=== PATIENT | male | born 1975 | race Hispanic/Latino ===

== ENCOUNTER 2023-07-27 04:10 | Emergency (ER) | payer SELFPAY ==
[2023-07-27 05:01] VITALS: BP 138/93
[2023-07-27 05:43] VITALS: BP 143/87
[2023-07-27 06:00] VITALS: BP 144/95
[2023-07-27 06:06] LABS: BASO% 0.5 % (0-3); EOS% 0.2 % (0-8); HEMATOCRIT 44.8 % (39.0-50.0); HEMOGLOBIN 15.1 g/dl (14.0-18.0); IMMATURE GRANULOCYTES 0.3 % (0.0-5.0); MEAN CELL VOLUME 76.1 fL CALC (80.0-100.0); MEAN CORPUSCULAR HGB 25.6 pG CALC (26.0-32.0); MEAN CORPUSCULAR HGB CONC 33.7 g/dL CAL (32.0-36.0); MONO% 7.4 % (2-13); NEUT# 3.88 thou/uL (1.82-7.42); NEUT% 65.6 % (42-76); RED BLOOD COUNT 5.89 mill/uL (4.70-6.10); RED CELL DISTRI WIDTH 13.6 % (11.5-15.5)
[2023-07-27 06:22] LABS: ALKALINE PHOSPHATASE 89 u/l (38-126); ANION GAP 22 (6-22 (CALC)); BUN 13 mg/dL (9-20); BUN/CREATININE RATIO 18 (12-20 (CALC)); CARBON DIOXIDE 18 mmol/l (22-30); CHLORIDE 107 mmol/l (95-108); CREATININE 0.7 mg/dL (0.7-1.3); ETHYL ALCOHOL 276 mg/dl (0-30); GFR FOR AFR.AMER. > 60 ML/MIN (>=60 (CALC)); GFR OTHER RACES > 60 ML/MIN (>=60 (CALC)); POTASSIUM 4.1 mmol/l (3.5-5.1); SGOT/AST 89 u/l (17-59); SODIUM 142 mmol/l (137-146)
[2023-07-27 10:57] VITALS: BP 144/95
== END 2023-07-27 11:13 | disposition home or self-care (01) | DRG 897 ==
LOC: ED 04:10
PROVIDERS: Family Medicine
DX: F10.129 Alcohol abuse with intoxication, unspecified (principal); Y90.8 Blood alcohol level of 240 mg/100 ml or more

== ENCOUNTER 2024-07-23 16:03 | Observation (INO) | payer SELFPAY ==
[~2024-07-23] VITALS: Ht 167.6 cm; Wt 75.8 kg
[~2024-07-23 16:03] MED LIST: COZAAR50 MG PO; PROTONIX40 M2 PO
--- NOTE | 2024-07-23 16:10 | NUR ---
PT BROUGHT BACK TO ER ROOM 5 VIA WHEELCHAIR
[2024-07-23 16:31] VITALS: BP 140/96
[2024-07-23] MEDS ORDERED: IPRATROPIUM-Albuterol 0.5MG-2.5MG/3 ML NEB ONE ×2 (16:35)
[2024-07-23] MEDS ORDERED: AZITHROMYCIN 500 MG in SODIUM CHLORIDE 0.9% 500 ML IV ONE (16:40)
[2024-07-23] MEDS ORDERED: cefTRIAXone SODIUM 2 GM in SODIUM CHLORIDE 0.9% 100 ML IV ONE (16:40)
[2024-07-23] MEDS ORDERED: methylPREDNISolone SODIUM SUCC 125 MG/2 ML SDV IV ONE (16:40)
[2024-07-23] MEDS ORDERED: SODIUM CHLORIDE 0.9% 1,000 ML IV ONE (16:45)
[2024-07-23 16:56] LABS: BASO% 0.2 % (0-3); HEMATOCRIT 44.6 % (39.0-50.0); HEMOGLOBIN 15.2 g/dl (14.0-18.0); IMMATURE GRANULOCYTES 0.9 % (0.0-5.0); LYMPH% 12.4 % (15-41); MEAN CELL VOLUME 74.1 fL CALC (80.0-100.0); MEAN CORPUSCULAR HGB 25.2 pG CALC (26.0-32.0); MEAN CORPUSCULAR HGB CONC 34.1 g/dL CAL (32.0-36.0); MONO% 7.9 % (2-13); NEUT# 11.02 thou/uL (1.82-7.42); NEUT% 78.6 % (42-76); RED BLOOD COUNT 6.02 mill/uL (4.70-6.10); RED CELL DISTRI WIDTH 12.9 % (11.5-15.5)
[2024-07-23 17:07] LABS: ALBUMIN 4.3 g/dL (3.2-5.0); ALKALINE PHOSPHATASE 87 u/l (38-126); ANION GAP 20 (6-22 (CALC)); BILIRUBIN, TOTAL 1.6 mg/dL (0.2-1.3); BUN 7 mg/dL (9-20); BUN/CREATININE RATIO 9 (12-20 (CALC)); CARBON DIOXIDE 15 mmol/l (22-30); CHLORIDE 103 mmol/l (95-108); CREATININE 0.8 mg/dL (0.7-1.3); ESTIMATED GFR 108 ML/MIN (>=90 (CALC)); POTASSIUM 4.1 mmol/l (3.5-5.1); SGOT/AST 55 u/l (17-59); SODIUM 133 mmol/l (137-146); TOTAL PROTEIN 7.2 g/dL (6.3-8.2)
[2024-07-23 17:08] VITALS: BP 164/84
[2024-07-23] MEDS ORDERED: FUROSEMIDE 40 MG/4 ML SDV IV ONE ×2 (17:25)
[2024-07-23 17:30] VITALS: BP 137/70
[2024-07-23 18:00] VITALS: BP 153/89
--- NOTE | 2024-07-23 18:10 | NUR ---
PT MEDICATED PER EMAR, PT IN BED, PT STATED HE IS FEELING A LITTLE BETTER THAN WHEN HE FIRST GOT HERE, CALL LIGHT WITHIN REACH, EMISIS BAG WITHIN REACH, PT DENIES ANY NEEDS AT THIS TIME, PT UPDATED ON THE PLAN OF CARE
[2024-07-23 18:30] VITALS: BP 161/136
[2024-07-23 18:44] LABS: URINE BILIRUBIN - DIPSTICK Negative (NEGATIVE); URINE BLOOD DIPSTICK Negative (NEGATIVE); URINE GLUCOSE - DIPSTICK 500 mg/dL (NEGATIVE); URINE KETONE Trace mg/dL (NEGATIVE); URINE LEUK ESTERASE Negative (NEGATIVE); URINE NITRITE - DIPSTICK Negative (Negative); URINE PROTEIN - DIPSTICK Negative (NEG-TRACE); URINE SPECIFIC GRAVITY <=1.005; URINE UROBILINOGEN - DIPSTICK 0.2 E.U./dL (0.2)
[2024-07-23 18:45] LABS: URINE COLOR Straw
[2024-07-23] MEDS ORDERED: OMEPRAZOLE DR40 MG PO (19:00)
--- NOTE | 2024-07-23 19:00 | NUR ---
RECEIVED REPORT FROM CARMELA HERNANDEZ AT THIS TIME, PT NOTED TO BE STANDING AT BEDSIDE, PT ASSISTED BACK TO BED, UPDATED ON CONTINUOUS PLAN OF CARE, PT ABX RUNNING, CONNECTED TO CONTINUOUS MONTITORING, NAD NOTED, PT ST ON ONITOR AT 120, AWAITING ALL FURTHER RESULTS, MED REC CMP BY RAILWAY SWITCHMAN.
--- NOTE | 2024-07-23 19:20 | NUR ---
PT CONTINUES TO EXIT STRETCHER AT THIS TIME, PT EDUCATED ON SAFETY PLAN, PT PLACED IN CHAIR WITH CALL LIGHT WITHIN REACH, ABX RUNNING, PT AWAITING MD FOR FURTHER PLAN OF CARE.
--- NOTE | 2024-07-23 19:29 | NUR ---
AT BEDSIDE FOR DISCUSSION OF RESULTS AND PLAN OF CARE.
[2024-07-23] MEDS ORDERED: CEFEPIME HCL 1 GM/VIAL IV ONE (19:40)
[2024-07-23] MEDS ORDERED: LACTATED RINGER'S 1,000 ML IV ONE (19:40)
[2024-07-23] MEDS ORDERED: VANCOMYCIN HCL 1 GM in SODIUM CHLORIDE 0.9% 500 ML IV ONE (19:40)
[2024-07-23] MEDS ORDERED: SODIUM CHLORIDE 0.9% 500 ML BAG IV ONE (20:50)
[2024-07-23] MEDS ORDERED: SODIUM CHLORIDE 0.9% 50 ML IV ONE (20:52)
[2024-07-23] MEDS ORDERED: ACETAMINOPHEN 325 MG/TAB PO PRN (21:05)
[2024-07-23] MEDS ORDERED: Polyethylene Glycol 3350 17 GM/PKT PO PRN (21:05)
[2024-07-23] MEDS ORDERED: LACTATED RINGER'S 1,000 ML IV PRN (21:05)
[2024-07-23] MEDS ORDERED: PANTOPRAZOLE SODIUM Sesquihydr 40 MG/TAB PO SCH (21:09)
[2024-07-23] MEDS ORDERED: VANCOMYCIN HCL 1 GM in SODIUM CHLORIDE 0.9% 250 ML IV ONE (21:10)
[2024-07-23] MEDS ORDERED: LORazepam 2 MG/ML IV PRN (21:10)
--- NOTE | 2024-07-23 21:34 | NUR ---
PT REPORT GIVEN TO EVELIO BALES ON [facility] FLOOR
--- NOTE | 2024-07-23 21:36 | NUR ---
REPORT CALLED TO NII FRASER ON [facility].
--- NOTE | 2024-07-23 21:45 | NUR ---
PT TRANSPORTED TO [facility] AT THIS TIME WITH ADDITIONAL STAFF.
--- NOTE | 2024-07-23 22:23 | NUR ---
PATIENT CAME IN FROM ER AT 2150 VIA WHEEL CHAIR. PATIENT IS ESTONIAN SPEAKING. BED SIDE ASSESSMENT COMPLETE. A&OX3. PUPILS 3MM REACTIVE TO LIGHT. LUNG SOUNDS CLEAR. UNLABORED RESP. NO VISUAL SIGNS OF DISTRESS. NORMAL S1&S2. BOWEL SOUNDS PRESENT IN ALL 4 QUADRENTS. PERIPHERAL PULSES EQUAL AND STRONG. NO COMPLAINTS OF PAIN AT THIS TIME. BED AT LOWEST POSITION. CALL LIGHT WITH IN REACH.
[2024-07-23 23:37] VITALS: BP 171/99
--- NOTE | 2024-07-24 00:10 | NUR ---
PATIENT IN ROOM SITTING IN RECLINER AWAKE. PATIENT CAN MAKE NEEDS KNOWN. NONE NEEDED AT THIS TIME. BED AT LOWEST POSITION. CALL LIGHT WITH IN REACH.
[2024-07-24 04:31] LABS: BASO% 0.1 % (0-3); HEMATOCRIT 41.2 % (39.0-50.0); HEMOGLOBIN 14.1 g/dl (14.0-18.0); IMMATURE GRANULOCYTES 0.5 % (0.0-5.0); LYMPH% 4.6 % (15-41); MEAN CELL VOLUME 75.5 fL CALC (80.0-100.0); MEAN CORPUSCULAR HGB 25.8 pG CALC (26.0-32.0); MEAN CORPUSCULAR HGB CONC 34.2 g/dL CAL (32.0-36.0); MONO% 1.6 % (2-13); NEUT# 11.31 thou/uL (1.82-7.42); NEUT% 93.2 % (42-76); RED BLOOD COUNT 5.46 mill/uL (4.70-6.10)
[2024-07-24 04:33] VITALS: BP 157/76
[2024-07-24 04:38] LABS: ALBUMIN 4.3 g/dL (3.2-5.0); BILIRUBIN, TOTAL 1.5 mg/dL (0.2-1.3); CREATININE 0.6 mg/dL (0.7-1.3); MAGNESIUM 1.9 mg/dL (1.6-2.3); POTASSIUM 4.5 mmol/l (3.5-5.1); TOTAL PROTEIN 6.7 g/dL (6.3-8.2)
--- NOTE | 2024-07-24 04:48 | NUR ---
PATIENT OBSERVED TO BE RESTING IN RECLINER. NO COMPLAINTS OF PAIN AT THIS TIME. UNLABORED RESP NO VISUAL SIGNS OF DISTRESS. BED AT LOWEST POSITION. CALL LIGHT WITH IN REACH.
--- NOTE | 2024-07-24 07:30 | NUR ---
SHIFT CHANGE REPORT, PT AWAKE ALERT AND ORIENTED SITTING UP IN RECLIER, DENIES PAIN, IVF INFUSING, CALL HOFFMAN IN REACH.
[2024-07-24 07:42] VITALS: BP 146/81
--- NOTE | 2024-07-24 07:48 | NUR ---
S: ALAN LOUIE is a 49 M who presents with sepsis. O: VS: BP 146/81, P 104, RR 16,T 98.9 W 75.8 KG, HT 66 IN, Scr= 0.6,CrCl= 130 ml/min A: Blood culture is pending. P: Patient is on Vancomycin and Cefepime 2gm IV q12h. Vancomycin ordered for pharmacy to dose. Start Vancomycin 1 gm IV Q8H. Vancomycin trough is drawn before the 4th dose on 07/25 730. Vancomycin goal trough is between <15-20 mcg/ml>. Pharmacy will follow and or advise on antibiotics use as needed.
[2024-07-24] MEDS ORDERED: VANCOMYCIN HCL 1 GM in SODIUM CHLORIDE 0.9% 500 ML IV SCH (08:00)
[2024-07-24] MEDS ORDERED: CEFEPIME HYDROCHLORIDE 2 GM in SODIUM CHLORIDE 0.9% 100 ML IV SCH ×2 (08:00→16:00)
[2024-07-24] MEDS ORDERED: THIAMINE HCL 100 MG TAB PO SCH (09:00)
[2024-07-24] MEDS ORDERED: FOLIC ACID 1 MG/TAB PO SCH (09:00)
[2024-07-24 10:39] VITALS: BP 145/76
--- NOTE | 2024-07-24 12:16 | NUR ---
RELAXING IN RECLINER, STABLE CONDITION
[2024-07-24] MEDS ORDERED: hydrALAZINE HCL 20 MG/ML VIAL(1 ML) IV PRN (15:20)
[2024-07-24 15:38] VITALS: BP 150/79
[2024-07-24] MEDS ORDERED: VANCOMYCIN HCL IV SCH (16:00)
[2024-07-24] MEDS ORDERED: SODIUM CHLORIDE 0.9% IV SCH (16:00)
[2024-07-24] MEDS ORDERED: DIATRIZOATE MEGLUMINE & SODIUM 30 ML/BTL PO SCH (16:30)
--- NOTE | 2024-07-24 16:39 | NUR ---
LACTIC ACID IS 2.2 COLT CASEY INFORMED
[2024-07-24] MEDS ORDERED: PIPERACILLIN Sodium-Tazobactam 3.375 GM in SODIUM CHLORIDE 0.9% 100 ML IV SCH (18:00)
--- NOTE | 2024-07-24 18:46 | NUR ---
TRANSPORTED OFF UNIT VIA W/C AT THIS TIME TO CT DEPT FOR PROCEDURE, PT INFORMED OF PROCEDURE EARLIER AND STATED UNDERSTANDING THROUGH TETRYL SCREEN OPERATOR.
--- NOTE | 2024-07-24 19:10 | NUR ---
TRANSPORTED BACK TO UNIT AND SETTLED IN ROOM.
[2024-07-24 21:57] VITALS: BP 155/87
[2024-07-25 00:14] VITALS: BP 159/98
[2024-07-25 03:58] VITALS: BP 155/86
--- NOTE | 2024-07-25 06:50 | NUR ---
Patient alert and oriented,no complains of pain, CIWA 0, on Zozyn.
[2024-07-25 07:27] LABS: BASO% 0.4 % (0-3); EOS% 0.1 % (0-8); HEMATOCRIT 40.5 % (39.0-50.0); HEMOGLOBIN 13.5 g/dl (14.0-18.0); IMMATURE GRANULOCYTES 0.8 % (0.0-5.0); LYMPH% 17.4 % (15-41); MEAN CELL VOLUME 76.9 fL CALC (80.0-100.0); MEAN CORPUSCULAR HGB 25.6 pG CALC (26.0-32.0); MEAN CORPUSCULAR HGB CONC 33.3 g/dL CAL (32.0-36.0); MONO% 6.9 % (2-13); NEUT# 5.47 thou/uL (1.82-7.42); NEUT% 74.4 % (42-76); RED BLOOD COUNT 5.27 mill/uL (4.70-6.10); RED CELL DISTRI WIDTH 13.2 % (11.5-15.5)
[2024-07-25 07:41] LABS: ALBUMIN 3.6 g/dL (3.2-5.0); BILIRUBIN, TOTAL 1.6 mg/dL (0.2-1.3); CREATININE 0.8 mg/dL (0.7-1.3); TOTAL PROTEIN 6.2 g/dL (6.3-8.2)
[2024-07-25 07:45] VITALS: BP 127/76
[2024-07-25 07:45] LABS: MAGNESIUM 2.4 mg/dL (1.6-2.3)
--- NOTE | 2024-07-25 08:01 | NUR ---
SHFIT CHANGE REPORT, PT AWAKE ALERT AND ORIENTED SITTING UP IN RECLINER, NO C/O DISCOMFORT, TELE MONITOR IN PLACE, CALL HOFFMAN IN REACH AND BED LOCKED IN LOWEST POSITION.
[2024-07-25 10:26] VITALS: BP 145/79
[2024-07-25 11:12] VITALS: BP 145/79
[2024-07-25] MEDS ORDERED: PIPERACILLIN Sodium-Tazobactam 3.375 GM in SODIUM CHLORIDE 0.9% 100 ML IV SCH (12:00)
[2024-07-25] MEDS ORDERED: DIATRIZOATE MEGLUMINE & SODIUM 30 ML/BTL PO SCH (16:10)
== END 2024-07-25 13:38 | disposition home or self-care (01) | DRG 872 ==
LOC: ED 16:03 → ED-I 19:25 → ED 19:41 → MS2 19:42
PROVIDERS: Family Medicine; ADMIT Internal Medicine; ATTEND Internal Medicine
DX: A41.9 Sepsis, unspecified organism (principal); E87.20 Acidosis, unspecified; K20.90 Esophagitis, unspecified without bleeding; F10.129 Alcohol abuse with intoxication, unspecified; Y90.7 Blood alcohol level of 200-239 mg/100 ml; I10 Essential (primary) hypertension; E11.9 Type 2 diabetes mellitus without complications; K21.9 Gastro-esophageal reflux disease without esophagitis; F32.A Depression, unspecified
CPT/HCPCS: G0378; J0456; J0692; J0696; J1940; J2060; J2543; J3370; Q9967

== ENCOUNTER 2024-08-31 08:11 | Emergency (ER) | payer SELFPAY ==
[2024-08-31] VITALS (14 sets, daily range): BP systolic 125–159; BP diastolic 67–105
[~2024-08-31] VITALS: Ht 167.6 cm; Wt 82.0 kg
[~2024-08-31 08:11] MED LIST changes: +OMEPRAZOLE DR40 MG PO
[2024-08-31] MEDS ORDERED: ONDANSETRON HCl 4 MG/2 ML SDV IV ONE ×2 (08:25→15:55)
[2024-08-31] MEDS ORDERED: THIAMINE HCL IV ONE (08:25)
[2024-08-31] MEDS ORDERED: SODIUM CHLORIDE 0.9% IV ONE (08:25)
[2024-08-31] MEDS ORDERED: [UNRECOGNIZED DRUG - OTHER] IV ONE (08:25)
[2024-08-31] MEDS ORDERED: MULTIPLE VITAMIN 10 ML,THIAMINE HCL 100 MG in SODIUM CHLORIDE 0.9% 1,000 ML IV ONE (08:35)
[2024-08-31 08:51] LABS: BASO% 0.2 % (0-3); EOS% 0.2 % (0-8); HEMATOCRIT 43.9 % (39.0-50.0); HEMOGLOBIN 14.9 g/dl (14.0-18.0); IMMATURE GRANULOCYTES 0.8 % (0.0-5.0); LYMPH% 19.5 % (15-41); MEAN CELL VOLUME 75.7 fL CALC (80.0-100.0); MEAN CORPUSCULAR HGB 25.7 pG CALC (26.0-32.0); MEAN CORPUSCULAR HGB CONC 33.9 g/dL CAL (32.0-36.0); MONO% 7.5 % (2-13); NEUT# 4.62 thou/uL (1.82-7.42); NEUT% 71.8 % (42-76); RED BLOOD COUNT 5.8 mill/uL (4.70-6.10)
[2024-08-31 09:00] LABS: CREATININE 0.8 mg/dL (0.7-1.3); POTASSIUM 4.5 mmol/l (3.5-5.1)
[2024-08-31 09:01] LABS: ALBUMIN 5.1 g/dL (3.2-5.0); BILIRUBIN, TOTAL 0.8 mg/dL (0.2-1.3); TOTAL PROTEIN 8.1 g/dL (6.3-8.2)
[2024-08-31] MEDS ORDERED: ZOFRAN4 MG/TAB PO (15:55)
== END 2024-08-31 16:27 | disposition home or self-care (01) | DRG 897 ==
LOC: ED 08:11
PROVIDERS: Family Medicine
DX: F10.129 Alcohol abuse with intoxication, unspecified (principal); Y90.8 Blood alcohol level of 240 mg/100 ml or more; I10 Essential (primary) hypertension; E11.9 Type 2 diabetes mellitus without complications; K21.9 Gastro-esophageal reflux disease without esophagitis; F32.A Depression, unspecified; Z63.0 Problems in relationship with spouse or partner
CPT/HCPCS: J2405; J3411

== ENCOUNTER 2024-10-21 07:43 | Emergency (ER) | payer SELFPAY ==
[~2024-10-21] VITALS: Ht 167.6 cm; Wt 71.0 kg
[2024-10-21] VITALS (12 sets, daily range): BP systolic 138–171; BP diastolic 90–119
[~2024-10-21 07:43] MED LIST changes: +ZOFRAN4 MG/TAB PO
[2024-10-21] MEDS ORDERED: FOLIC ACID 5 MG/ML IV ONE (07:55)
[2024-10-21] MEDS ORDERED: SODIUM CHLORIDE 0.9% 1,000 ML IV ONE (07:55)
[2024-10-21] MEDS ORDERED: ONDANSETRON HCl 4 MG/2 ML SDV IV ONE (07:55)
[2024-10-21] MEDS ORDERED: THIAMINE HCL 100 MG/ML 2ML VIAL IV ONE (07:55)
[2024-10-21 08:05] LABS: BASO% 0.6 % (0-3); EOS% 0.2 % (0-8); HEMATOCRIT 47.5 % (39.0-50.0); HEMOGLOBIN 16.1 g/dl (14.0-18.0); IMMATURE GRANULOCYTES 0.3 % (0.0-5.0); LYMPH% 33.3 % (15-41); MEAN CELL VOLUME 73.1 fL CALC (80.0-100.0); MEAN CORPUSCULAR HGB 24.8 pG CALC (26.0-32.0); MEAN CORPUSCULAR HGB CONC 33.9 g/dL CAL (32.0-36.0); MONO% 7.1 % (2-13); NEUT# 3.82 thou/uL (1.82-7.42); NEUT% 58.5 % (42-76); RED BLOOD COUNT 6.5 mill/uL (4.70-6.10); RED CELL DISTRI WIDTH 14.5 % (11.5-15.5)
[2024-10-21 08:22] LABS: ALBUMIN 5.2 g/dL (3.2-5.0); ALKALINE PHOSPHATASE 92 u/l (38-126); ANION GAP 21 (6-22 (CALC)); BUN 13 mg/dL (9-20); BUN/CREATININE RATIO 16 (12-20 (CALC)); CARBON DIOXIDE 21 mmol/l (22-30); CHLORIDE 104 mmol/l (95-108); CREATININE 0.8 mg/dL (0.7-1.3); ESTIMATED GFR 108 ML/MIN (>=90 (CALC)); ETHYL ALCOHOL 290 mg/dl (0-30); POTASSIUM 4.2 mmol/l (3.5-5.1); SGOT/AST 58 u/l (17-59); SODIUM 141 mmol/l (137-146); TOTAL PROTEIN 8.4 g/dL (6.3-8.2)
[2024-10-21 08:26] LABS: BILIRUBIN, TOTAL 1.3 mg/dL (0.2-1.3)
== END 2024-10-21 14:05 | disposition home or self-care (01) | DRG 897 ==
LOC: ED 07:43
PROVIDERS: Family Medicine
DX: F10.129 Alcohol abuse with intoxication, unspecified (principal); Y90.8 Blood alcohol level of 240 mg/100 ml or more; I10 Essential (primary) hypertension; E11.9 Type 2 diabetes mellitus without complications; K21.9 Gastro-esophageal reflux disease without esophagitis; F32.A Depression, unspecified
CPT/HCPCS: J2405; J3411